=== PATIENT | female | born 1940 | race Caucasian/White ===

== ENCOUNTER 2018-05-14 13:52 | Inpatient (IN) ==
[2018-05-14] MEDS ORDERED: ASPIRIN 325 MG TABLET PO STA (14:15)
[2018-05-14] MEDS ORDERED: SODIUM CHLORIDE 0.9% 1,000 ML IV STA (14:15)
[2018-05-14] MEDS ORDERED: ALBUTEROL/IPRATROPIUM 3 ML NEB RESP TX STA (14:15)
[2018-05-14] MEDS ORDERED: ALBUTEROL 2.5 MG/3 ML NEB RESP TX STA ×2 (14:15→15:50)
[2018-05-14 15:29] LABS: Basophils % 0.4 % (0.0-0.8); Eosinophils % 0.3 % (0.00-10.9); Hemoglobin 12.3 GM/DL (12.0-16.0); Immature Granulocytes % 0.6 %; Immature Granulocytes Absolute 0.07 #; Lymphocytes # 0.5 10*3/uL (1.4-4.0); Lymphocytes % 4.3 % (21.3-54.2); Mean Corpuscular HGB Conc 32.4 GM/DL (32-36); Mean Corpuscular Hemoglobin 26 PG (27-34); Mean Corpuscular Volume 80.5 FL (87-102); Mean Platelet Volume 8.9 FL (9.6-12.0); Monocytes % 9.1 % (1.7-12.7); Neutrophils # 9.4 10*3/uL (1.4-7.4); Neutrophils % 85.3 % (38.7-73.9); Platelet Count 267 T/CUMM (130-400); Red Blood Count 4.72 MC/CUMM (3.8-5.5); Red Cell Distribution Width 16.6 % (9.3-17.3); White Blood Count 11.1 T/CUMM (4-12)
[2018-05-14 15:36] LABS: INR 0.9; PT Patient Result 9.9 SECS
[2018-05-14 15:50] LABS: Alanine Aminotransferase 22 U/L (13-56); Albumin 2.9 G/DL (3.4-5.0); Alkaline Phosphatase 150 U/L (45-117); Aspartate Amino Transferase 14 U/L (0-37); Blood Urea Nitrogen 14 MG/DL (7-18); Calcium 8.2 MG/DL (8.5-10.1); Eosinophils 1 % (0-10); Glucose 276 MG/DL (74-106); Lymphocytes 4 % (20-55); Osmolality,Calculated 272.7 MOS/KG (273-304); Platelet Estimate Adequate; Segmented Neutrophils 89 % (50-85); Sodium 131 MMOL/L (136-145); Total Cells Counted 100; Total Protein 6.6 G/DL (6.4-8.3)
[2018-05-14] MEDS ORDERED: methylPREDNISolone SOD SUC 125 MG/2 ML VIAL IV STA (17:13)
[2018-05-14] MEDS ORDERED: cefTRIAXone 1,000 MG in SODIUM CHLORIDE 0.9% 100 ML IV STA (17:13)
[2018-05-14] MEDS ORDERED: AZITHROMYCIN INJ 500 MG in SODIUM CHLORIDE 0.9% 250 ML IV STA (17:13)
[2018-05-14] MEDS ORDERED: DOCUSATE SODIUM 100 MG CAPSULE PO PRN (17:28)
[2018-05-14] MEDS ORDERED: PROMETHAZINE 25 MG/1 ML VIAL IM PRN (17:28)
[2018-05-14] MEDS ORDERED: ACETAMINOPHEN 325 MG TABLET PO PRN (17:28)
[2018-05-14] MEDS ORDERED: traZODone 50 MG TABLET PO PRN (17:28)
[2018-05-14] MEDS ORDERED: guaiFENesin/DM ER 600-30 MG TABLET PO PRN (17:28)
[2018-05-14] MEDS ORDERED: DEXTROSE 50% 25 GM/50 ML VIAL IV PRN (18:30)
[2018-05-14] MEDS ORDERED: GLUCAGON 1 MG VIAL IM PRN (18:30)
[2018-05-14] MEDS: ALBUTEROL/IPRATROPIUM 3 ML NEB RESP TX SCH (18:48)
[2018-05-14] MEDS: DORNASE ALFA 2.5 MG/2.5 ML VIAL RESP TX SCH (18:53)
[2018-05-14] MEDS ORDERED: Fluticasone/Vilanterol [Breo Ellipta 100-25 Mcg Inh INH SCH (21:00)
[2018-05-14] MEDS: SODIUM CHLORIDE 0.9% 1,000 ML IV SCH (21:24)
[2018-05-14] MEDS: LEVOFLOXACIN INJ 750 MG in PREMIX 1 EACH IV SCH (21:24)
[2018-05-14] MEDS: GLIMEPIRIDE 2 MG TABLET PO SCH (21:24)
[2018-05-14] MEDS: GABAPENTIN 100 MG CAPSULE PO SCH (21:25)
[2018-05-14] MEDS: ENOXAPARIN 40 MG/0.4 ML SYRINGE SUBCUT SCH (21:25)
[2018-05-14] MEDS: MEROPENEM 1,000 MG in SYRINGE 1 EACH IV SCH (21:25)
[2018-05-14] MEDS: ASPIRIN EC 81 MG TABLET PO SCH (21:25)
[2018-05-14] MEDS: MULTIVITAMIN (OCUVITE) TABLET PO SCH (21:25)
[2018-05-14] MEDS: ATORVASTATIN 40 MG TABLET PO SCH (21:25)
[2018-05-14] MEDS: INSULIN REGULAR 100 UNIT/ML SUBCUT SCH (21:35)
[2018-05-15] MEDS: ALBUTEROL/IPRATROPIUM 3 ML NEB RESP TX SCH ×4 (00:06→19:28)
[2018-05-15] MEDS: methylPREDNISolone SOD SUC 125 MG/2 ML VIAL IV SCH ×2 (01:34→09:10)
[2018-05-15 05:06] LABS: Basophils % 0.2 % (0.0-0.8); Hematocrit 33.5 VOL% (35.7-47.0); Hemoglobin 11.2 GM/DL (12.0-16.0); Immature Granulocytes Absolute 0.06 #; Lymphocytes # 0.2 10*3/uL (1.4-4.0); Lymphocytes % 3.3 % (21.3-54.2); Mean Corpuscular HGB Conc 33.4 GM/DL (32-36); Mean Corpuscular Hemoglobin 26 PG (27-34); Mean Platelet Volume 8.9 FL (9.6-12.0); Monocytes # 0.1 10*3/uL (0.11-0.8); Monocytes % 2.1 % (1.7-12.7); Neutrophils # 5.4 10*3/uL (1.4-7.4); Neutrophils % 93.4 % (38.7-73.9); Platelet Count 247 T/CUMM (130-400); Red Blood Count 4.24 MC/CUMM (3.8-5.5); Red Cell Distribution Width 16.7 % (9.3-17.3); White Blood Count 5.8 T/CUMM (4-12)
[2018-05-15 05:43] LABS: Band Neutrophils 18 % (0-10); Lymphocytes 2 % (20-55); Segmented Neutrophils 79 % (50-85); Total Cells Counted 100
[2018-05-15 05:44] LABS: Anisocytosis 1+; Poikilocytosis 1+
[2018-05-15 05:49] LABS: Albumin 2.6 G/DL (3.4-5.0); Bilirubin,Total 0.4 MG/DL (0.2-1.0); Calcium 7.8 MG/DL (8.5-10.1); Osmolality,Calculated 281.1 MOS/KG (273-304); Potassium 4.1 MMOL/L (3.5-5.1); Risk Ratio 2.75; Thyroid Stimulating Hormone 0.36 uIU/ml (0.358-3.74); Total Protein 6.1 G/DL (6.4-8.3)
[2018-05-15] MEDS: MEROPENEM 1,000 MG in SYRINGE 1 EACH IV SCH ×3 (06:13→20:59)
[2018-05-15] MEDS: DORNASE ALFA 2.5 MG/2.5 ML VIAL RESP TX SCH ×2 (06:50→19:34)
[2018-05-15] MEDS: GLIMEPIRIDE 2 MG TABLET PO SCH ×2 (08:23→16:56)
[2018-05-15] MEDS: GABAPENTIN 100 MG CAPSULE PO SCH ×3 (08:24→20:56)
[2018-05-15] MEDS: INSULIN REGULAR 100 UNIT/ML SUBCUT SCH ×4 (08:24→20:58)
[2018-05-15] MEDS: MULTIVITAMIN (OCUVITE) TABLET PO SCH ×2 (08:25→21:09)
[2018-05-15] MEDS: amLODIPine 10 MG TABLET PO SCH (08:25)
[2018-05-15] MEDS: PANTOPRAZOLE 40 MG TABLET PO SCH (08:25)
[2018-05-15] MEDS ORDERED: LOPERAMIDE 2 MG CAPSULE PO PRN (08:51)
[2018-05-15] MEDS ORDERED: LISINOPRIL/HCTZ 20-25 MG TABLET PO SCH (09:00)
[2018-05-15] MEDS: CHOLESTYRAMINE 4 GM PACK PO SCH ×2 (09:40→21:00)
[2018-05-15] MEDS: LACTOBACILLUS ACIDOPHILUS/BULGARICUS CAPLET PO SCH (09:40)
[2018-05-15] MEDS: fentaNYL 12 MCG/HR PATCH TRANSDERM SCH (09:50)
[2018-05-15 14:42] LABS: Apearance,Urine CLEAR (Clear); Bilirubin,Urine Negative (Negative); Blood, Urine Negative (Negative); Glucose,Urine (UA) >=500 mg/dL (Negative); Ketones,Urine 20 mg/dL (Negative); Nitrite,Urine Negative (Negative); Protein,Urine Negative; RBC,Urine 1 /HPF (0-4); Squamous Epithelial Cell,Urine Occasional /HPF (0-10); Urine Color Straw (Yellow); Urine Specific Gravity 1.022 (1.001-1.035); Urine Urobilinogen < 2.0 EU/DL (0.2-1.0); WBC,Urine <1 /HPF (0-6)
[2018-05-15] MEDS: LEVOFLOXACIN INJ 750 MG in PREMIX 1 EACH IV SCH (19:58)
[2018-05-15] MEDS: ENOXAPARIN 40 MG/0.4 ML SYRINGE SUBCUT SCH (19:58)
[2018-05-15] MEDS: ATORVASTATIN 40 MG TABLET PO SCH (20:56)
[2018-05-15] MEDS: ASPIRIN EC 81 MG TABLET PO SCH (20:58)
[2018-05-15] MEDS: SODIUM CHLORIDE 0.9% 1,000 ML IV SCH (22:07)
[2018-05-15] MEDS: diphenhydrAMINE CAP 25 MG CAPSULE PO PRN (22:07)
[2018-05-16] MEDS: ALBUTEROL/IPRATROPIUM 3 ML NEB RESP TX SCH ×4 (00:41→19:36)
[2018-05-16] MEDS: MEROPENEM 1,000 MG in SYRINGE 1 EACH IV SCH ×3 (04:45→20:56)
[2018-05-16 05:09] LABS: Basophils % 0.1 % (0.0-0.8); Hematocrit 28.6 VOL% (35.7-47.0); Immature Granulocytes % 0.9 %; Immature Granulocytes Absolute 0.12 #; Lymphocytes # 0.5 10*3/uL (1.4-4.0); Lymphocytes % 3.5 % (21.3-54.2); Mean Corpuscular HGB Conc 32.2 GM/DL (32-36); Mean Corpuscular Hemoglobin 26 PG (27-34); Mean Corpuscular Volume 81.5 FL (87-102); Mean Platelet Volume 8.7 FL (9.6-12.0); Monocytes % 7.7 % (1.7-12.7); Neutrophils # 11.9 10*3/uL (1.4-7.4); Neutrophils % 87.8 % (38.7-73.9); Platelet Count 218 T/CUMM (130-400); Red Blood Count 3.51 MC/CUMM (3.8-5.5); Red Cell Distribution Width 16.8 % (9.3-17.3)
[2018-05-16 05:35] LABS: Albumin 2.1 G/DL (3.4-5.0); Bilirubin,Total 0.5 MG/DL (0.2-1.0); Calcium 7.4 MG/DL (8.5-10.1); Osmolality,Calculated 280.4 MOS/KG (273-304); Potassium 3.8 MMOL/L (3.5-5.1); Total Protein 5.1 G/DL (6.4-8.3)
[2018-05-16 05:37] LABS: Hemoglobin 9.2 GM/DL (12.0-16.0); White Blood Count 13.5 T/CUMM (4-12)
[2018-05-16 05:40] LABS: Band Neutrophils 10 % (0-10); Lymphocytes 1 % (20-55); Platelet Estimate Normal; Segmented Neutrophils 80 % (50-85); Total Cells Counted 100
[2018-05-16 05:41] LABS: Anisocytosis 1+
[2018-05-16] MEDS: DORNASE ALFA 2.5 MG/2.5 ML VIAL RESP TX SCH ×2 (07:28→19:41)
[2018-05-16] MEDS ORDERED: methylPREDNISolone SOD SUC 40 MG/1 ML VIAL IV SCH (09:00)
[2018-05-16] MEDS ORDERED: predniSONE 20 MG TABLET PO SCH (09:00)
[2018-05-16] MEDS: CHOLESTYRAMINE 4 GM PACK PO SCH ×2 (09:05→20:46)
[2018-05-16] MEDS: INSULIN REGULAR 100 UNIT/ML SUBCUT SCH ×4 (09:05→20:46)
[2018-05-16] MEDS: MULTIVITAMIN (OCUVITE) TABLET PO SCH ×2 (09:06→20:46)
[2018-05-16] MEDS: GLIMEPIRIDE 2 MG TABLET PO SCH ×2 (09:06→18:09)
[2018-05-16] MEDS: LACTOBACILLUS ACIDOPHILUS/BULGARICUS CAPLET PO SCH (09:06)
[2018-05-16] MEDS: GABAPENTIN 100 MG CAPSULE PO SCH ×3 (09:06→20:46)
[2018-05-16] MEDS: amLODIPine 10 MG TABLET PO SCH (09:07)
[2018-05-16] MEDS: PANTOPRAZOLE 40 MG TABLET PO SCH (09:07)
[2018-05-16] MEDS: LEVOFLOXACIN INJ 750 MG in PREMIX 1 EACH IV SCH (19:11)
[2018-05-16] MEDS: ENOXAPARIN 40 MG/0.4 ML SYRINGE SUBCUT SCH (19:13)
[2018-05-16] MEDS: diphenhydrAMINE CAP 25 MG CAPSULE PO PRN (20:46)
[2018-05-16] MEDS: ASPIRIN EC 81 MG TABLET PO SCH (20:46)
[2018-05-16] MEDS: ATORVASTATIN 40 MG TABLET PO SCH (20:46)
[2018-05-17] MEDS: ALBUTEROL/IPRATROPIUM 3 ML NEB RESP TX SCH (00:12)
[2018-05-17] MEDS ORDERED: METOPROLOL TARTRATE 5 MG/5 ML VIAL IV ONE (00:30)
[2018-05-17] MEDS ORDERED: MORPHINE 4 MG/1 ML VIAL IV PRN (02:03)
[2018-05-17] MEDS: ONDANSETRON 4 MG/2 ML VIAL IV PRN (02:17)
[2018-05-17] MEDS ORDERED: methylPREDNISolone SOD SUC 125 MG/2 ML VIAL IV ONE (02:30)
[2018-05-17] MEDS: LEVALBUTEROL 1.25 MG/3 ML NEB RESP TX SCH ×4 (02:30→19:12)
[2018-05-17] MEDS: MEROPENEM 1,000 MG in SYRINGE 1 EACH IV SCH ×3 (05:07→20:48)
[2018-05-17] MEDS: DORNASE ALFA 2.5 MG/2.5 ML VIAL RESP TX SCH ×2 (07:21→19:12)
[2018-05-17] MEDS ORDERED: TERBUTALINE 1 MG/1 ML VIAL SUBCUT ONE (08:22)
[2018-05-17] MEDS: GABAPENTIN 100 MG CAPSULE PO SCH ×3 (09:28→20:46)
[2018-05-17] MEDS: PANTOPRAZOLE 40 MG TABLET PO SCH (09:28)
[2018-05-17] MEDS: LACTOBACILLUS ACIDOPHILUS/BULGARICUS CAPLET PO SCH (09:28)
[2018-05-17] MEDS: MULTIVITAMIN (OCUVITE) TABLET PO SCH ×2 (09:28→20:48)
[2018-05-17] MEDS: GLIMEPIRIDE 2 MG TABLET PO SCH ×2 (09:28→17:12)
[2018-05-17] MEDS: MORPHINE 4 MG/1 ML VIAL IV PRN ×3 (09:29→20:33)
[2018-05-17] MEDS: methylPREDNISolone SOD SUC 40 MG/1 ML VIAL IV SCH ×2 (09:29→17:13)
[2018-05-17] MEDS: INSULIN REGULAR 100 UNIT/ML SUBCUT SCH ×4 (09:29→20:48)
[2018-05-17] MEDS: amLODIPine 10 MG TABLET PO SCH (09:32)
[2018-05-17] MEDS: CHOLESTYRAMINE 4 GM PACK PO SCH ×2 (09:39→20:49)
[2018-05-17] MEDS: FLUCONAZOLE INJ 100 MG in IV BAG 1 EACH IV SCH (10:13)
[2018-05-17] MEDS: diphenhydrAMINE CAP 25 MG CAPSULE PO PRN (20:46)
[2018-05-17] MEDS: ASPIRIN EC 81 MG TABLET PO SCH (20:47)
[2018-05-17] MEDS: ENOXAPARIN 40 MG/0.4 ML SYRINGE SUBCUT SCH (20:47)
[2018-05-17] MEDS: LEVOFLOXACIN INJ 750 MG in PREMIX 1 EACH IV SCH (20:47)
[2018-05-18] MEDS: methylPREDNISolone SOD SUC 40 MG/1 ML VIAL IV SCH ×3 (00:05→16:23)
[2018-05-18] MEDS: LEVALBUTEROL 1.25 MG/3 ML NEB RESP TX SCH ×4 (00:30→19:22)
[2018-05-18] MEDS: MEROPENEM 1,000 MG in SYRINGE 1 EACH IV SCH ×3 (05:17→20:57)
[2018-05-18] MEDS: DORNASE ALFA 2.5 MG/2.5 ML VIAL RESP TX SCH ×2 (07:11→19:22)
[2018-05-18] MEDS: PANTOPRAZOLE 40 MG TABLET PO SCH (08:53)
[2018-05-18] MEDS: amLODIPine 10 MG TABLET PO SCH (08:53)
[2018-05-18] MEDS: MULTIVITAMIN (OCUVITE) TABLET PO SCH ×2 (08:53→20:58)
[2018-05-18] MEDS: LACTOBACILLUS ACIDOPHILUS/BULGARICUS CAPLET PO SCH (08:53)
[2018-05-18] MEDS: GLIMEPIRIDE 2 MG TABLET PO SCH ×2 (08:53→16:23)
[2018-05-18] MEDS: GABAPENTIN 100 MG CAPSULE PO SCH ×3 (08:55→20:58)
[2018-05-18] MEDS: FLUCONAZOLE INJ 100 MG in IV BAG 1 EACH IV SCH (08:55)
[2018-05-18] MEDS: INSULIN REGULAR 100 UNIT/ML SUBCUT SCH ×4 (08:55→20:59)
[2018-05-18] MEDS: ONDANSETRON 4 MG/2 ML VIAL IV PRN (09:04)
[2018-05-18] MEDS: CHOLESTYRAMINE 4 GM PACK PO SCH ×2 (09:38→20:59)
[2018-05-18] MEDS: LISINOPRIL 10 MG TABLET PO SCH (10:20)
[2018-05-18] MEDS: fentaNYL 12 MCG/HR PATCH TRANSDERM SCH (10:21)
[2018-05-18] MEDS: ASPIRIN EC 81 MG TABLET PO SCH (20:58)
[2018-05-18] MEDS: ENOXAPARIN 40 MG/0.4 ML SYRINGE SUBCUT SCH (20:58)
[2018-05-18] MEDS: LEVOFLOXACIN INJ 750 MG in PREMIX 1 EACH IV SCH (20:59)
[2018-05-18] MEDS: diphenhydrAMINE CAP 25 MG CAPSULE PO PRN (21:01)
[2018-05-19] MEDS: methylPREDNISolone SOD SUC 40 MG/1 ML VIAL IV SCH ×2 (00:13→09:27)
[2018-05-19] MEDS: diphenhydrAMINE CAP 25 MG CAPSULE PO PRN (04:22)
[2018-05-19] MEDS: MEROPENEM 1,000 MG in SYRINGE 1 EACH IV SCH (04:22)
[2018-05-19] MEDS: LEVALBUTEROL 1.25 MG/3 ML NEB RESP TX SCH ×2 (07:14→08:25)
[2018-05-19] MEDS: DORNASE ALFA 2.5 MG/2.5 ML VIAL RESP TX SCH (07:19)
[2018-05-19] MEDS: INSULIN REGULAR 100 UNIT/ML SUBCUT SCH (09:08)
[2018-05-19] MEDS: CHOLESTYRAMINE 4 GM PACK PO SCH (09:08)
[2018-05-19] MEDS: LISINOPRIL 10 MG TABLET PO SCH (09:26)
[2018-05-19] MEDS: LACTOBACILLUS ACIDOPHILUS/BULGARICUS CAPLET PO SCH (09:26)
[2018-05-19] MEDS: MULTIVITAMIN (OCUVITE) TABLET PO SCH (09:26)
[2018-05-19] MEDS: GABAPENTIN 100 MG CAPSULE PO SCH (09:26)
[2018-05-19] MEDS: amLODIPine 10 MG TABLET PO SCH (09:26)
[2018-05-19] MEDS: GLIMEPIRIDE 2 MG TABLET PO SCH (09:26)
[2018-05-19] MEDS: PANTOPRAZOLE 40 MG TABLET PO SCH (09:26)
[2018-05-19] MEDS: FLUCONAZOLE INJ 100 MG in IV BAG 1 EACH IV SCH (09:27)
[2018-05-19 12:45] VITALS: BP 146/72
== END 2018-05-19 13:32 | disposition hospice, home (50) | DRG 190 ==
LOC: N.ED 13:52 → SUATTDRO 17:28 → N.EDINP 17:28 → N.4E 18:41
PROVIDERS: ADMIT Hospitalist